=== PATIENT | female | born 1975 | race American Indian/Alaskan Native ===

== ENCOUNTER 2017-01-30 14:00 | Emergency (ER) | payer OTHER ==
[2017-01-30 14:19] VITALS: BP 123/89
[2017-01-30 15:26] LABS: Urine Drugs of Abuse Note Disclamer
[2017-01-30 15:53] LABS: RBC,Urine < 1.0 /HPF (0.0-6.0); WBC,Urine < 1.0 /HPF (0.0-6.0)
[2017-01-30 15:54] LABS: Bilirubin,Urine NEG (Negative); Blood,Urine NEG (Negative); Ketones,Urine NEG (Negative); Leukocyte Esterase,Urine NEG (Negative); Nitrite,Urine NEG (Negative); Protein,Urine <15 mg/dL mg/dL (Negative); Urobilinogen,Urine < 2.0 mg/dL (<2.0)
[2017-01-30 16:07] LABS: Basophils % (Auto) 0.3 % (0.0-1.8); Hematocrit 38.1 % (30.3-42.9); Hemoglobin 12.9 gm/dl (10.1-14.3); Mean Corpuscular HGB Conc 34 % (30-34); Mean Corpuscular Hemoglobin 33 pg (28-32); Mean Corpuscular Volume 96 fl (79-97); Platelet Count 390 K/mm3 (140-440); Red Blood Count 3.97 M/mm3 (3.65-5.03); Red Cell Distribution Width 13.4 % (13.2-15.2); White Blood Count 10.1 K/mm3 (4.5-11.0)
[2017-01-30 16:19] LABS: Anion Gap 16 mmol/L; BUN/Creatinine Ratio 13; Blood Urea Nitrogen 12 mg/dL (7-17); Calcium 10.7 mg/dL (8.4-10.2); Carbon Dioxide 27 mmol/L (22-30); Chloride 95.5 mmol/L (98-107); Glucose 106 mg/dL (65-100); Potassium 4.7 mmol/L (3.6-5.0); Sodium 134 mmol/L (137-145)
== END 2017-01-30 16:00 | disposition left against medical advice (07) ==
LOC: ED 14:00
DX: H53.8 Other visual disturbances (principal); R06.02 Shortness of breath; Z53.21 Procedure and treatment not carried out due to patient leaving prior to being seen by health care provider
CPT/HCPCS: 36415; 80048; 80307; 81001; 85025; G0480; 80320

== ENCOUNTER 2017-10-14 11:14 | Emergency (ER) | payer SELFPAY ==
[2017-10-14] MEDS ORDERED: ASPIRIN PO ONE (11:38)
[2017-10-14 11:39] VITALS: BP 120/78
== END 2017-10-14 11:45 | disposition left against medical advice (07) ==
LOC: ED 11:14
DX: R07.89 Other chest pain (principal); Z53.21 Procedure and treatment not carried out due to patient leaving prior to being seen by health care provider
CPT/HCPCS: 93005; 93010

== ENCOUNTER 2019-06-11 15:38 | Emergency (ER) | payer OTHER ==
--- NOTE | 2019-06-11 18:30 | Emergency Department Report ---
ED General Adult HPI - General Chief complaint: Overdose Stated complaint: HBP Time Seen by Provider: 06/11/19 18:23 Source: patient Mode of arrival: Ambulatory Limitations: No Limitations - History of Present Illness Initial comments: This is a 44-year-old bipolar, depression, anxiety, hypertension, PTSD, ADHD who presents with jittery feeling and elevated blood pressure. She may have taken an extra dose of her Adderall. She denies suicidal ideation. She denies intentional overdose. She recalls taking 1 tablet. She may have taken an extra tablet. She denies chest pain. She states that things are well at home. Additionally she was unable to find her lisinopril medication. Consequently she did not take this medicine today. -: Gradual, This afternoon Severity scale (0 -10): 0 Consistency: now resolved Improves with: none Worsens with: none Associated Symptoms: denies other symptoms - Related Data Home Medications Medication Instructions Recorded Confirmed Last Taken ARIPiprazole [Abilify TAB] 2 mg PO DAILY 01/05/14 12/15/15 01/05/14 ARIPiprazole [Abilify TAB] 2 mg PO DAILY 01/05/14 12/15/15 01/05/14 Levomefolate/Algal Oil 1 each PO DAILY 01/05/14 12/15/15 01/05/14 [Deplin-Algal Oil 7.5 mg Cap] lamoTRIgine [LaMICtal] 100 mg PO BID 01/05/14 12/15/15 01/05/14 Allergies Allergy/AdvReac Type Severity Reaction Status Date / Time No Known Allergies Allergy Unverified 01/05/14 17:14 ED Review of Systems ROS: Stated complaint: HBP Other details as noted in HPI Comment: All other systems reviewed and negative Constitutional: denies: fever, malaise Respiratory: denies: cough, shortness of breath Gastrointestinal: denies: abdominal pain ED Past Medical Hx - Past Medical History Previous Medical History?: Yes Hx Hypertension: Yes Hx Congestive Heart Failure: No Hx Diabetes: No Hx Psychiatric Treatment: Yes (bipolar,depression,anxiety,PTSD,ADHD) Hx Asthma: No Hx COPD: No - Surgical History Past Surgical History?: Yes Additional Surgical History: right knee - Social History Smoking Status: Never Smoker Substance Use Type: None - Medications Home Medications: Home Medications Medication Instructions Recorded Confirmed Last Taken Type ARIPiprazole [Abilify TAB] 2 mg PO DAILY 01/05/14 12/15/15 01/05/14 History ARIPiprazole [Abilify TAB] 2 mg PO DAILY 01/05/14 12/15/15 01/05/14 History Levomefolate/Algal Oil 1 each PO DAILY 01/05/14 12/15/15 01/05/14 History [Deplin-Algal Oil 7.5 mg Cap] lamoTRIgine [LaMICtal] 100 mg PO BID 01/05/14 12/15/15 01/05/14 History ED Physical Exam - General Limitations: No Limitations General appearance: alert, in no apparent distress - Head Head exam: Present: atraumatic, normocephalic - Eye Eye exam: Present: normal appearance - ENT ENT exam: Present: mucous membranes moist - Neck Neck exam: Present: normal inspection, full ROM - Respiratory Respiratory exam: Present: normal lung sounds bilaterally. Absent: respiratory distress, wheezes, rales, rhonchi - Cardiovascular Cardiovascular Exam: Present: regular rate, normal rhythm, normal heart sounds. Absent: systolic murmur, diastolic murmur, rubs, gallop - GI/Abdominal GI/Abdominal exam: Present: soft, normal bowel sounds. Absent: distended, tenderness, guarding, rebound - Extremities Exam Extremities exam: Present: normal inspection - Back Exam Back exam: Present: normal inspection - Neurological Exam Neurological exam: Present: alert, oriented X3 - Psychiatric Psychiatric exam: Present: normal affect, normal mood. Absent: anxious, flat affect, manic, homicidal ideation, suicidal ideation - Skin Skin exam: Present: warm, dry, intact, normal color. Absent: rash ED Course Vital Signs 06/11/19 06/11/19 06/11/19 15:43 18:11 18:18 Temperature 98.0 F 97.7 F Pulse Rate 138 H 104 H Respiratory 20 18 18 Rate Blood Pressure 175/100 Blood Pressure 149/107 [Right] O2 Sat by Pulse 99 100 100 Oximetry ED Medical Decision Making - EKG Data EKG shows normal: sinus rhythm, axis, intervals, QRS complexes, ST-T waves Rate: tachycardia - EKG Data Interpretation: normal EKG (With exception of tachycardia) - Medical Decision Making Ms. Thao presents with unintentional Adderall overdose. After 3 hours in the emergency department observation, heart rate 100 bpm. Blood pressure 149/101. I have encouraged her to not take tomorrow's Adderall dose. She is currently symptom-free. Critical care attestation.: If time is entered above; I have spent that time in minutes in the direct care of this critically ill patient, excluding procedure time. ED Disposition Clinical Impression: Accidental drug overdose, Hypertensive urgency Disposition: DC- TO HOME OR SELFCARE Is pt being admited?: No Does the pt Need Aspirin: No Condition: Stable Additional Instructions: Please do not take tomorrow's dose of Adderall. You may start taking Adderall again on Wednesday. Referrals: PRIMARY CARE, [Primary Care Provider] - 3-5 Days
[2019-06-11 19:04] VITALS: BP 152/100
== END 2019-06-11 19:00 | disposition home or self-care (01) ==
LOC: ED 15:38
DX: T50.991A Poisoning by other drugs, medicaments and biological substances, accidental (unintentional), initial encounter (principal); I16.0 Hypertensive urgency; F43.11 Post-traumatic stress disorder, acute; F90.9 Attention-deficit hyperactivity disorder, unspecified type; F31.9 Bipolar disorder, unspecified; Y92.89 Other specified places as the place of occurrence of the external cause
CPT/HCPCS: 93005; 93010